=== PATIENT | male | born 1960 | race Caucasian/White ===

== ENCOUNTER → 2023-09-07 09:17 | Outpatient (REF) | payer BC, SELFPAY | LOC: RAD 09:17 | PROVIDERS: ATTENDING PHYSICIAN Emergency Medicine | DX: Z87.891 Personal history of nicotine dependence (principal); Z82.62 Family history of osteoporosis; R29.890 Loss of height | CPT/HCPCS: 76770; 77080 ==

== ENCOUNTER 2025-07-29 10:29 | Emergency (ER) | payer BC, SELFPAY ==
[2025-07-29 11:01] VITALS: BP 168/105
[2025-07-29 11:07] VITALS: BP 168/105
--- NOTE | 2025-07-29 12:53 | ED.GENMED ---
History of Present Illness
General
Chief Complaint: Back Pain
Time Seen by Provider: 07/29/25 12:44
History of Present Illness
History of Present Illness:
65-year-old male presents to the emergency department for evaluation of right-sided low back pain rating down the right leg for the past 2 days. He had mild pain 1 week ago that seem to improve with ibuprofen use. Yesterday while twisting noticed
abrupt onset of severe pain. No fever, chills, sweats, loss of bladder function.
Past History
Past History
ED Past Medical History: HTN and Hypercholesterolemia
Social History
Living: with family
Employment: Employed
Review of Systems
Review of Systems
Allergies reviewed?: Yes
All Other Systems: ROS reviewed and negative except as documented in HPI and ROS
Phy Exam
Physical Exam
Physical Exam:
GEN: Well appearing, NAD, WDWN
HEENT: Oral mucosa moist, no scleral icterus
Cardiac: Regular rate
Lung: No respiratory distress, no tachypnea
MSK: No gross deformity or injuries. Tenderness elicited to the right paraspinous musculature with no bony tenderness. Bilateral hip and pelvic range of motion normal, there is some discomfort elicited during hip external rotation. Negative
straight leg raise bilaterally
Skin: Good color, no pallor or jaundice, no rashes
Neuro: AO x3, moves all extremities freely
Psych: Calm, cooperative
Course
Orders/Labs/Results
Orders:
Orders
07/29/25 12:53
Ketorolac [Toradol] 30 mg IM NOW STA
Vital Signs
Initial and Last Documented VS:
Initial Vital Signs
Temp Pulse Resp BP Pulse Ox
98 F 90 16 168/105 99
07/29/25 11:01 07/29/25 11:01 07/29/25 11:01 07/29/25 11:01 07/29/25 11:01
Last Documented Vital Signs
Temp Pulse Resp BP Pulse Ox
99.2 F 75 16 176/102 96
07/29/25 11:07 07/29/25 13:20 07/29/25 13:20 07/29/25 13:20 07/29/25 12:54
MDM/Problems Addressed
MDM/Problems Addressed:
Symptoms consistent with lumbar radiculopathy potentially related to an acute disc herniation given the mechanism of injury. He has normal strength in the lower extremities and no red flag symptoms worrisome for urgent MRI. Discussed supportive
care Including NSAIDs and muscle relaxants
*Pulse Oximetry
SaO2: 96
Oxygen Mode of Delivery: Room air
Patient hypoxic: no
*Critical Care Note
Total Time (30-74mins, 75-104mins- exclusive of procedures): Not Applicable
ED Attending Note
-
Portions of this chart may have been created with voice recognition software.� Occasional wrong word or��sound alike� substitutions may have occurred due to the inherent limitations of voice recognition software.
Discharge Plan
Departure
Patient Disposition: Home (Routine Discharge)
Date of Disposition: 07/29/25
Time of Disposition: 12:53
Patient with high blood pressure during this ER visit?: No
Discharge Problem:
Lumbar radiculopathy
Instructions: Radiculopathy (DC)
Prescriptions:
New
meloxicam 15 mg tablet
15 mg PO DAILY Qty: 20 0RF
methocarbamol 750 mg tablet
750 mg PO Q8H PRN (Reason: pain) Qty: 20 0RF
No Action
No Current Medications
Interventions
Interventions:
*General Assessment Last Done: 07/29/25 13:20
*Neglect/Abuse Screening Last Done: 07/29/25 11:01
*ED COVID-19 Vaccine History Last Done: 07/29/25 13:20
*ED Influenza Vaccine History Last Done: 07/29/25 13:20
[facility] Risk Assessment Tool Last Done: 07/29/25 13:20
*Risk Screen - Suicide (C-SSRS) Last Done: 07/29/25 11:01
*Nursing Disposition Last Done: 07/29/25 13:20
ED-Musculoskeletal Assessment Last Done: 07/29/25 13:21
Discharge Date and Time
Discharge Date/Time: 07/29/25 13:20
Print Language: [id number]
[2025-07-29] MEDS: TORADOL 30 MG IM (13:08)
[2025-07-29 13:20] VITALS: BP 176/102
== END 2025-07-29 13:20 | disposition home or self-care (01) ==
LOC: EMR 10:29
PROVIDERS: EMERGENCY PHYSICIAN Emergency Medicine
DX: M54.16 Radiculopathy, lumbar region (principal); I10 Essential (primary) hypertension; E78.00 Pure hypercholesterolemia, unspecified
CPT/HCPCS: 99284; 96372